=== PATIENT | female | born 1960 | race Asian ===

== ENCOUNTER 2019-07-18 19:05 | Outpatient (CLI) | payer SELFPAY | END 2019-07-18 19:06 | disposition critical access hospital (66) | LOC: EMS 19:05 | PROVIDERS: ATTEND Surgery | DX: S99.911A Unspecified injury of right ankle, initial encounter (principal); W22.8XXA Striking against or struck by other objects, initial encounter; Y93.01 Activity, walking, marching and hiking; Y92.59 Other trade areas as the place of occurrence of the external cause | CPT/HCPCS: A0425; A0427 ==

== ENCOUNTER 2019-07-18 19:23 | Emergency (ER) | payer SELFPAY ==
[2019-07-18] MEDS ORDERED: SODIUM CHLORIDE 0.9% 1,000 ML IV ONE (19:30)
[2019-07-18] MEDS ORDERED: PROPOFOL 200 MG/20 ML VIAL IVP STA (19:30)
--- NOTE | 2019-07-18 19:31 | ED Physician Documentation ---
PD HPI LOWER EXT INJURY - Stated complaint Stated Complaint: GLF/ANKLE INJURY - History obtained from History obtained from: Patient, EMS, Other (oven worker tablet) - History of Present Illness PD HPI LOW EXT INJURY LOCATION: Right Type of injury: Fall (Previously healthy 59-year-old woman was carrying some materials and tripped and fell. She injured her right ankle. No syncope. No other injuries. Pain was severe but better after 50 mcg of fentanyl in route.) Review of Systems Ten Systems: 10 systems reviewed and negative Constitutional: reports: Reviewed and negative Cardiac: reports: Reviewed and negative Respiratory: reports: Reviewed and negative PD PAST MEDICAL HISTORY - Past Medical History Past Medical History: No - Present Medications Home Medications: Ambulatory Orders Medication Instructions Recorded Confirmed Hydrocodone/Acetaminophen 1 - 2 each PO Q6H PRN #20 tablet 07/18/19 [Hydrocodon-Acetaminophen 5-325] Knee Scooter 1 udtab TD ONCE #1 07/18/19 - Allergies Allergies/Adverse Reactions: Allergies Allergy/AdvReac Type Severity Reaction Status Date / Time No Known Drug Allergies Allergy Verified 07/18/19 19:57 - Social History Does the pt smoke?: No Does the pt have substance abuse?: No - Family History Family history: reports: Non contributory PD ED PE NORMAL - Vitals Vital signs reviewed: Yes - General General: Alert and oriented X 3, No acute distress - HEENT HEENT: PERRL, EOMI - Neck Neck: Supple, no meningeal sign, No bony TTP - Cardiac Cardiac: RRR, No murmur - Respiratory Respiratory: No respiratory distress, Clear bilaterally - Abdomen Abdomen: Normal bowel sounds, Soft, Non tender - Back Back: No CVA TTP, No spinal TTP - Extremities Extremities: Other (There is an obvious deformity of the right ankle consistent with at least a bimalleolar fracture. She has normal pedal pulses and sensatio n.) - Neuro Neuro: Alert and oriented X 3, Normal speech Results - Vitals Vitals: Vital Signs - 24 hr 07/18/19 07/18/19 07/18/19 19:45 21:00 21:05 Temperature 36.8 C Heart Rate 75 70 71 Respiratory 18 22 20 Rate Blood Pressure 149/91 H 114/73 106/71 O2 Saturation 97 94 95 07/18/19 07/18/19 21:15 21:19 Temperature Heart Rate 74 77 Respiratory 18 17 Rate Blood Pressure 130/86 H 134/87 H O2 Saturation 97 96 Oxygen O2 Source Room air - Rads (name of study) 3v R ankle Radiology: EMP read contemporaneously (Trimalleolar fracture) Procedures - Splint (location) RLE Splint applied by: Physician, Tech Type of splint: Fiberglass, Short leg, Posterior, Stirrup Other: Patient tolerated well, No complications, Neurovascular intact - Reduction Body part reduced: Right, Ankle Fracture or dislocation: Fracture dislocation Reduction aftercare: Alignment improved, Splint applied - Procedural sedation Sedation prep: Informed consent, AHA 1 - healthy Sedation medications: propofol (80mg IVP x1) Patient status during sedation: Responds to tactile, Vitals remained stable, Maintained airway, Recovered uneventfully Sedation recovery: Recovered uneventfully Time in sedation (Minutes): 15 Departure - Departure Disposition: 01 Home, Self Care Clinical Impression: Trimalleolar fracture of ankle, closed Qualifiers: Encounter type: initial encounter Laterality: right Qualified Code(s): S82.851A - Displaced trimalleolar fracture of right lower leg, initial encounter for closed fracture Condition: Good Instructions: ED Fx Lower Ext Follow-Up: [facility] [Provider Group] - Tomorrow Prescriptions: Hydrocodone/Acetaminophen [Hydrocodon-Acetaminophen 5-325] 1 - 2 each PO Q6H PRN #20 tablet PRN Reason: pain Knee Scooter 1 udtab TD ONCE #1 Comments: Your ankle is straigt now. But you will need surgery within 1-2 weeks. Keep it elevated. Do not remove the splint. Call the surgeon tomorrow to make an appointment.
--- NOTE | 2019-07-18 20:35 | XRAY Report ---
Reason: ankle inj Procedure Date: 07/18/2019 Accession Number: [id number] / [id number] Procedure: XR - Ankle 3 View RT CPT Code: Final Report FULL RESULT: EXAM: RIGHT ANKLE RADIOGRAPHY EXAM DATE: 07/18/2019 07:59 PM. CLINICAL HISTORY: Ankle injury. Right ankle pain and disfigurement. Just walking and this happened. COMPARISON: None. TECHNIQUE: 3 views. FINDINGS: Acute trimalleolar fractures with ankle joint subluxation. Distal fibula Dumont B fracture of the distal fracture fragment moderately angled laterally along with posterior displacement. Posterior malleolus distal tibia fracture. Medial malleolus fracture moderately displaced laterally. Widened mortise. Moderate lateral subluxation and angulation of the talus along with moderate posterior subluxation. Adjacent soft tissue swelling. Small calcaneal bone spurs. IMPRESSION: Acute trimalleolar fractures with ankle joint subluxation. See above. RADIA
[2019-07-18] MEDS ORDERED: HYDROcod/ACET 5/325 Prepack 4 PO STA (21:11)
--- NOTE | 2019-07-18 21:40 | XRAY Report ---
Reason: post reduction Procedure Date: 07/18/2019 Accession Number: [id number] / [id number] Procedure: XR - Ankle 2 View RT CPT Code: Final Report FULL RESULT: EXAM: RIGHT ANKLE RADIOGRAPHY EXAM DATE: 07/18/2019 09:32 PM. CLINICAL HISTORY: Post reduction. COMPARISON: ANKLE 3 VIEW RT 07/18/2019 7:38 PM. TECHNIQUE: 3 views. FINDINGS: Improved alignment compared to the prior exam. There continues to be mild lateral subluxation of the talus at the ankle joint. The previously seen posterior subluxation has resolved. Improved alignment of the tri-malleolar fractures. Mild posterior displacement of the distal fibular fracture remains. Mild distal subluxation of the medial malleus fracture. Posterior malleolus fracture appears in anatomical alignment. New overlying cast. IMPRESSION: Improved alignment compared to the prior exam. There continues to be mild lateral subluxation of the talus at the ankle joint. The previously seen posterior subluxation has resolved. Improved alignment of the tri-malleolar fractures. Mild posterior displacement of the distal fibular fracture remains. Mild distal subluxation of the medial malleus fracture. Posterior malleolus fracture appears in anatomical alignment. New overlying cast. RADIA
[2019-07-18 22:03] VITALS: BP 130/86
== END 2019-07-18 22:04 | disposition home or self-care (01) ==
LOC: ED 19:23
DX: S82.851A Displaced trimalleolar fracture of right lower leg, initial encounter for closed fracture (principal); W10.8XXA Fall (on) (from) other stairs and steps, initial encounter; Y93.01 Activity, walking, marching and hiking; Y92.008 Other place in unspecified non-institutional (private) residence as the place of occurrence of the external cause
CPT/HCPCS: 27818; 94770; 99152; 99284; 99285